=== PATIENT | male | born 1995 | race Caucasian/White ===

== ENCOUNTER 2021-07-13 12:42 | Outpatient (CLI) | payer OTHER, SELFPAY ==
--- NOTE | 2021-07-13 13:30 | XR_ITS ---
WS: [id number] Right hand, 4 views with attention to the right thumb, 07/13/2021 Clinical Data: THUMB PAIN, RIGHT; ATTN: THUMB Comparison: Right thumb, 12/12/2007. Findings: No fractures or dislocations are seen. The soft tissues are unremarkable. The joint space s are normal Right thumb shows no abnormalities. XR/XR hand RT min 3V* [id number] Impression: Negative right hand.
== END 2021-07-13 12:43 | disposition home or self-care (01) ==
PROVIDERS: Visit Provider Family Medicine
DX: M79.644 Pain in right finger(s) (principal)
CPT/HCPCS: 73130